=== PATIENT | female | born 1960 | race Caucasian/White ===

== ENCOUNTER → 2020-10-22 | Outpatient (CLI) | payer OTHER ==
[~2020-10-22] MED LIST: B-COMPLEX PO; CHOL200024 PO; DOCU-180 PO; ERGO500017 PO; GLUC-34 PO; GLUC-88 PO; METF500T17 PO; MULT-672 PO; OMNIPAQUE 350 MG/ML, 100ML BOTTLE ONE; POTA10TA11 PO; SIMV40TA20 PO; TRIA1CAP3 PO
== END | disposition home or self-care (01) ==
LOC: RAD 14:33
PROVIDERS: ATTEND Nurse Practitioner Family
DX: K62.5 Hemorrhage of anus and rectum (principal); R10.9 Unspecified abdominal pain; Q89.09 Congenital malformations of spleen
CPT/HCPCS: 74177; Q9967

== ENCOUNTER → 2020-11-18 | Outpatient (CLI) | payer OTHER ==
[~2020-11-18] MED LIST changes: -DOCU-180 PO; +DOCU-183 PO; -OMNIPAQUE 350 MG/ML, 100ML BOTTLE ONE
== END | disposition home or self-care (01) ==
LOC: CVU 07:12
PROVIDERS: ATTEND Nurse Practitioner Family
DX: I83.813 Varicose veins of bilateral lower extremities with pain (principal); R20.2 Paresthesia of skin; R22.43 Localized swelling, mass and lump, lower limb, bilateral; G62.9 Polyneuropathy, unspecified; M79.89 Other specified soft tissue disorders; I65.23 Occlusion and stenosis of bilateral carotid arteries
CPT/HCPCS: 93922; 93970